=== PATIENT | female | born 1995 | race African-American/Black ===

== ENCOUNTER 2017-06-05 07:40 | Emergency (ER) | payer MEDICAID ==
[~2017-06-05] VITALS: Ht 154.9 cm; Wt 61.2 kg
[2017-06-05] MEDS ORDERED: IV NORMAL SALINE 1000ML BAG 1,000 ML IV SCH (08:25)
[2017-06-05] MEDS ORDERED: ONDANSETRON PF 4 MG/2 ML VIAL. IV ONE (08:30)
[2017-06-05 08:43] LABS: BILIRUBIN,URINE NEGATIVE (NEG); GLUCOSE,URINE NEGATIVE (NEG); NITRITE,URINE NEGATIVE (NEG); PROTEIN,URINE NEGATIVE (NEG-TRACE)
[2017-06-05 08:52] LABS: BACTERIA,URINE FEW /HPF (0-FEW); RBC,URINE OCC /HPF (0-2); SQUAMOUS EPITHELIAL CELL,UR MANY /LPF; WBC,URINE OCC /HPF (0-4)
[2017-06-05 08:58] LABS: BARBITURATES NEG (NEG); BENZODIAZEPINES NEG (NEG); CANNABINOIDS NEG (NEG); COCAINE NEG (NEG); METHADONE NEG (NEG); OPIATES NEG (NEG); PHENCYCLIDINE NEG (NEG)
[2017-06-05] MEDS ORDERED: fentaNYL PF VIAL 100 MCG/2 ML VIAL IV PRN (09:00)
[2017-06-05 09:03] LABS: BASO % 1 % (0-3); EOS % 1 % (0-3); HEMATOCRIT 48.4 % (36.0-47.0); HEMOGLOBIN 16.1 g/dL (12.0-15.5); LYMPH # 2.4 x10^3/uL (1.0-4.8); LYMPH % 47 % (24-48); MEAN CORPUSCULAR HEMOGLOBIN 29 pg (25-35); MEAN CORPUSCULAR HGB CONC 33 g/dL (31-37); MEAN CORPUSCULAR VOLUME 88 fL (79-100); MONO % 9 % (0-9); NEUT % 42 % (31-73); PLATELET COUNT 214 x10^3/uL (140-400); RED BLOOD COUNT 5.47 x10^6/uL (3.50-5.40); RED CELL DISTRIBUTION WIDTH 14.4 % (11.5-14.5); WHITE BLOOD COUNT 5.1 x10^3/uL (4.0-11.0)
[2017-06-05 09:16] LABS: CALCIUM 9.2 mg/dL (8.5-10.1); CREATININE 0.8 mg/dL (0.6-1.0); GFR 110.7; POTASSIUM 3.8 mmol/L (3.5-5.1)
[2017-06-05 09:22] LABS: ALBUMIN 4.3 g/dL (3.4-5.0); ALBUMIN/GLOBULIN RATIO 1.1 (1.0-1.7); TOTAL BILIRUBIN 0.2 mg/dL (0.2-1.0); TOTAL PROTEIN 8.1 g/dL (6.4-8.2)
[2017-06-05 09:50] VITALS: BP 141/74
[2017-06-05] MEDS ORDERED: ONDA4TAB10 PO (10:19)
[2017-06-05] MEDS ORDERED: ESOM40CA PO (10:19)
--- NOTE | 2017-06-05 10:19 | PHYS DOC ---
Past Medical History Past Medical History: Asthma Past Surgical History: No Surgical History Alcohol Use: None Drug Use: None Adult General Chief Complaint Chief Complaint: NAUSEA/VOMITING HPI HPI Patient is a 22 year old female who presents with nausea since yesterday, it kept her up all night last night, only about 2 episodes of vomiting. No diarrhea. Patient has had more spells of nausea with some vomiting off and on for "a while". She has not seen a specialist about it. She has been seen in various emergency departments and "they never tell me what's wrong with me". Patient is tearful but when I ask her if her abdomen is hurting or more nauseated she states that it's mostly nausea. Patient does not believe that she is . She has no other chronic medical problems. No diabetes. Review of Systems Review of Systems Constitutional: Denies fever or chills [] HENT: Denies nasal congestion or sore throat [] Respiratory: Denies cough or shortness of breath [] Cardiovascular: Denies chest pain GI: As in history of present illness : Denies dysuria or hematuria [] Musculoskeletal: Denies back pain or joint pain [] Integument: Denies rash or skin lesions [] Neurologic: Denies headache, focal weakness or sensory changes [] Current Medications Current Medications Current Medications Medications (Trade) Dose Ordered Sig/Belen Start Time Stop Time Status Last Admin Dose Admin Fentanyl Citrate (Fentanyl 2ml Vial) 50 mcg PRN Q15MIN PRN 06/05/17 09:00 06/05/17 10:25 DC 06/05/17 08:59 50 MCG Ondansetron HCl (Zofran) 4 mg 1X ONCE 06/05/17 08:30 06/05/17 08:33 DC 06/05/17 08:36 4 MG Sodium Chloride 1,000 ml @ 1,000 mls/hr Q1H 06/05/17 08:25 06/05/17 09:24 DC 06/05/17 08:36 1,000 MLS/HR Allergies Allergies Allergies Coded Allergies Type Severity Reaction Last Updated Verified No Known Drug Allergies 06/05/17 No Physical Exam Physical Exam Constitutional: Well developed, well nourished, tearful, alert, mentating normally HENT: Normocephalic, atraumatic, bilateral external ears normal, nose normal. [] Eyes: conjunctiva normal, no discharge. [] Neck: Normal range of motion, no stridor. [] Cardiovascular:Heart rate regular rhythm, no murmur [] Lungs & Thorax: Bilateral breath sounds clear to auscultation [] Abdomen: Bowel sounds normal, soft, nondistended, no tenderness, no masses, no pulsatile masses. Abdomen exam entirely benign. Skin: Warm, dry, no erythema, no rash. [] Extremities: No tenderness, no cyanosis, no clubbing, ROM intact, no edema. [] Neurologic: Alert and oriented X 3, normal motor function, normal sensory function, no focal deficits noted. [] Current Patient Data Vital Signs Vital Signs Date Time Temp Pulse Resp B/P (MAP) Pulse Ox O2 Delivery O2 Flow Rate FiO2 06/05/17 09:50 63 18 141/74 (96) 98 Room Air 06/05/17 07:53 97.3 97.3 Lab Values Laboratory Tests Test 06/05/17 07:03 06/05/17 07:53 06/05/17 08:30 POC Urine HCG, Qualitative Hcg negative (Negative) Urine Collection Type Void Urine Color Yellow Urine Clarity Clear Urine pH 6.0 Urine Specific [place] 1.025 Urine Protein Negative mg/dL (NEG-TRACE) Urine Glucose (UA) Negative mg/dL (NEG) Urine Ketones (Stick) Negative mg/dL (NEG) Urine Blood Negative (NEG) Urine Nitrite Negative (NEG) Urine Bilirubin Negative (NEG) Urine Urobilinogen Dipstick 1.0 mg/dL (0.2 mg/dL) Urine Leukocyte Esterase Negative (NEG) Urine RBC Occ /HPF (0-2) Urine WBC Occ /HPF (0-4) Urine Squamous Epithelial Cells Many /LPF Urine Bacteria Few /HPF (0-FEW) Urine Mucus Marked /LPF Urine Opiates Screen Neg (NEG) Urine Methadone Screen Neg (NEG) Urine Barbiturates Neg (NEG) Urine Phencyclidine Screen Neg (NEG) Urine Amphetamine/Methamphetamine Neg (NEG) Urine Benzodiazepines Screen Neg (NEG) Urine Cocaine Screen Neg (NEG) Urine Cannabinoids Screen Neg (NEG) Urine Ethyl Alcohol Neg (NEG) White Blood Count 5.1 x10^3/uL (4.0-11.0) Red Blood Count 5.47 x10^6/uL (3.50-5.40) H Hemoglobin 16.1 g/dL (12.0-15.5) H Hematocrit 48.4 % (36.0-47.0) H Mean Corpuscular Volume 88 fL (79-100) Mean Corpuscular Hemoglobin 29 pg (25-35) Mean Corpuscular Hemoglobin Concent 33 g/dL (31-37) Red Cell Distribution Width 14.4 % (11.5-14.5) Platelet Count 214 x10^3/uL (140-400) Neutrophils (%) (Auto) 42 % (31-73) Lymphocytes (%) (Auto) 47 % (24-48) Monocytes (%) (Auto) 9 % (0-9) Eosinophils (%) (Auto) 1 % (0-3) Basophils (%) (Auto) 1 % (0-3) Neutrophils # (Auto) 2.1 x10^3uL (1.8-7.7) Lymphocytes # (Auto) 2.4 x10^3/uL (1.0-4.8) Monocytes # (Auto) 0.5 x10^3/uL (0.0-1.1) Eosinophils # (Auto) 0.1 x10^3/uL (0.0-0.7) Basophils # (Auto) 0.0 x10^3/uL (0.0-0.2) Platelet Estimate Adequate (ADEQUATE) Large Platelets Present Ovalocytes Few Sodium Level 142 mmol/L (136-145) Potassium Level 3.8 mmol/L (3.5-5.1) Chloride Level 106 mmol/L (98-107) Carbon Dioxide Level 25 mmol/L (21-32) Anion Gap 11 (6-14) Blood Urea Nitrogen 10 mg/dL (7-20) Creatinine 0.8 mg/dL (0.6-1.0) Estimated GFR (Cockcroft-Gault) 110.7 BUN/Creatinine Ratio 13 (6-20) Glucose Level 100 mg/dL (70-99) H Calcium Level 9.2 mg/dL (8.5-10.1) Total Bilirubin 0.2 mg/dL (0.2-1.0) Aspartate Amino Transferase (AST) 20 U/L (15-37) Alanine Aminotransferase (ALT) 15 U/L (14-59) Alkaline Phosphatase 55 U/L (46-116) Total Protein 8.1 g/dL (6.4-8.2) Albumin 4.3 g/dL (3.4-5.0) Albumin/Globulin Ratio 1.1 (1.0-1.7) Lipase 99 U/L (73-393) Laboratory Tests 06/05/17 08:30 Laboratory Tests 06/05/17 08:30 EKG EKG [] Radiology/Procedures Radiology/Procedures [] Course & Med Decision Making Course & Med Decision Making Pertinent Labs and Imaging studies reviewed. (See chart for details) 22-year-old female presents with nausea and a couple of episodes of vomiting. test is negative. Labs are entirely unremarkable. The patient was given a liter of IV fluids and some IV Zofran and a small amount of fentanyl for abdominal pain complaints. ED RN came and told me that the patient feels all better and is ready to go home. I Urged the patient to follow up as an outpatient for further evaluation. See instructions for plan. [] Dragon Disclaimer Dragon Disclaimer This electronic medical record was generated, in whole or in part, using a voice recognition dictation system. Departure Departure Impression: Primary Impression: Nausea & vomiting Disposition: 01 HOME, SELF-CARE Condition: IMPROVED Referrals: NO PCP (PCP) Patient Instructions: Nausea and Vomiting, [id number] Additional Instructions: Today, tests did not show the reason for your nausea and vomiting. It is reassuring that blood tests were normal and you were improved with nausea medicine, but I do want you to follow up with a primary care doctor, you may need to see a GI specialist. I wrote a prescription for nausea medicine that you can use as needed. We really do need to find out what is causing your nausea though, so you do need follow-up. I also prescribed a medicine that will reduce stomach acid. Take that medication daily to see if that will help. Scripts Esomeprazole Magnesium (NEXIUM CAPSULE) 40 Mg Capsule.dr 1 CAP PO DAILY for decrease stomach acid, #30 CAP 0 Refills Prov: JANNET GONSALEZ MD 06/05/17 Ondansetron (ZOFRAN ODT) 4 Mg Tab.rapdis 4 MG PO Q6-8HRS Y for NAUSEA/VOMITING, #10 TAB Prov: JANNET GONSALEZ MD 06/05/17 JANNET GONSALEZ MD Jun 05, 2017 10:19
[2017-06-05 11:35] LABS: PLT ESTIMATE ADEQUATE (ADEQUATE)
[2017-06-05 11:36] LABS: OVALOCYTES FEW
== END 2017-06-05 10:25 | disposition home or self-care (01) ==
LOC: ER 07:40
DX: R11.2 Nausea with vomiting, unspecified (principal); J45.909 Unspecified asthma, uncomplicated
CPT/HCPCS: 36415; 80053; 80307; 81001; 81025; 83690; 85025; 96361; 96374; 96375; 99284; J2405; J3010; J7030; G0479

== ENCOUNTER 2018-12-09 09:01 | Emergency (ER) | payer SELFPAY ==
[~2018-12-09] VITALS: Ht 154.9 cm; Wt 68.0 kg
[~2018-12-09 09:01] MED LIST: ESOM40CA PO; ONDA4TAB10 PO
[2018-12-09 09:15] VITALS: BP 133/82
[2018-12-09] MEDS ORDERED: IBUPROFEN 600 MG TABLET. PO ONE (09:30)
[2018-12-09 10:11] LABS: INFLUENZA B PATIENT NEGATIVE (NEGATIVE)
[2018-12-09 10:12] LABS: INFLUENZA A PATIENT POSITIVE (NEGATIVE)
[2018-12-09] MEDS ORDERED: OSEL75CA PO (10:18)
[2018-12-09] MEDS ORDERED: METH4TAB2 PO (10:18)
[2018-12-09] MEDS ORDERED: ONDA4TAB12 PO (10:18)
--- NOTE | 2018-12-09 10:19 | PHYS DOC ---
Past Medical History Past Medical History: Asthma Past Surgical History: No Surgical History Alcohol Use: None Drug Use: None Adult General Chief Complaint Chief Complaint: FLU SYMPTOM HPI HPI Patient is a 23 year old female who presents with 2 days of body aches, head pain, nasal congestion, cough, nausea. Review of Systems Review of Systems Constitutional: Denies fever or chills [] Eyes: Denies change in visual acuity, redness, or eye pain [] HENT: Denies nasal congestion or sore throat [] Respiratory: Denies cough or shortness of breath [] Cardiovascular: No additional information not addressed in HPI [] GI: Denies abdominal pain, nausea, vomiting, bloody stools or diarrhea [] : Denies dysuria or hematuria [] Musculoskeletal: Denies back pain or joint pain [] Integument: Denies rash or skin lesions [] Neurologic: Denies headache, focal weakness or sensory changes [] Endocrine: Denies polyuria or polydipsia [] All other systems were reviewed and found to be within normal limits, except as documented in this note. Current Medications Current Medications Current Medications Medications (Trade) Dose Ordered Sig/Belen Start Time Stop Time Status Last Admin Dose Admin Ibuprofen (Motrin) 600 mg 1X ONCE 12/09/18 09:30 12/09/18 09:31 DC 12/09/18 09:37 600 MG Allergies Allergies Allergies Coded Allergies Type Severity Reaction Last Updated Verified No Known Drug Allergies 06/05/17 No Physical Exam Physical Exam Constitutional: Well developed, well nourished, no acute distress, non-toxic appearance. [] HENT: Normocephalic, atraumatic, bilateral external ears normal, oropharynx moist, no oral exudates, nose normal. [] Eyes: PERRLA, EOMI, conjunctiva normal, no discharge. [] Neck: Normal range of motion, no tenderness, supple, no stridor. [] Cardiovascular:Heart rate regular rhythm, no murmur [] Lungs & Thorax: Bilateral breath sounds clear to auscultation [] Abdomen: Bowel sounds normal, soft, no tenderness, no masses, no pulsatile masses. [] Skin: Warm, dry, no erythema, no rash. [] Back: No tenderness, no CVA tenderness. [] Extremities: No tenderness, no cyanosis, no clubbing, ROM intact, no edema. [] Neurologic: Alert and oriented X 3, normal motor function, normal sensory function, no focal deficits noted. [] Psychologic: Affect normal, judgement normal, mood normal. [] Current Patient Data Vital Signs Vital Signs Date Time Temp Pulse Resp B/P (MAP) Pulse Ox O2 Delivery O2 Flow Rate FiO2 12/09/18 09:15 98.7 79 20 133/82 (99) 97 Room Air 98.7 Lab Values Laboratory Tests Test 12/09/18 09:30 Influenza Type A Antigen Positive (NEGATIVE) Influenza Type B Antigen Negative (NEGATIVE) EKG EKG [] Radiology/Procedures Radiology/Procedures [] Course & Med Decision Making Course & Med Decision Making Patient is a 23 year old female who presents with 2 days of body aches, head pain, nasal congestion, cough, nausea. Alert and oriented. Mucous murmurs are moist. Skin pink warm and dry. Walks with a steady gait. Abdomen is soft and nontender. Vital signs within normal limits. Afebrile. PERRLA. Lungs are clear to auscultation all lobes. Heart rate regular without murmur. There is reddened but there is no exudates or swelling. Bilateral tympanic membranes are pearly white. Flu A positive. Vital signs remain normal limits. Dragon Disclaimer Dragon Disclaimer This electronic medical record was generated, in whole or in part, using a voice recognition dictation system. Departure Departure Impression: Primary Impression: Influenza A Disposition: 01 HOME, SELF-CARE Condition: STABLE Referrals: NO PCP (PCP) Patient Instructions: Influenza A (H1N1) Additional Instructions: Drink plenty of fluids. Take medications as prescribed. Follow up with your primary care next week if not getting better. Scripts Ondansetron (ONDANSETRON ODT) 4 Mg Tab.rapdis 1 TAB PO PRN Q6-8HRS, #16 TAB Prov: REZA MORALES [employer]ATIONS SPECIALIST 12/09/18 Methylprednisolone (MEDROL) 4 Mg Tab.ds.pk 1 PKG PO UD, #1 PKG Prov: REZA MORALES [employer]ATIONS SPECIALIST 12/09/18 Oseltamivir Phosphate (TAMIFLU) 75 Mg Capsule 1 CAP PO BID for 5 Days, #10 CAP Prov: REZA MORALES [employer] RELATIONS SPECIALIST 12/09/18 REZA MORALES IND[employer] RELATIONS SPECIALIST Dec 09, 2018 10:19
== END 2018-12-09 10:24 | disposition home or self-care (01) ==
LOC: ER 09:01
DX: J11.1 Influenza due to unidentified influenza virus with other respiratory manifestations (principal); M79.18 Myalgia, other site; J45.909 Unspecified asthma, uncomplicated
CPT/HCPCS: 87804; 99283